=== PATIENT | female | born 1930 | race Caucasian/White ===

== ENCOUNTER 2016-10-07 21:35 | Emergency (ER) | payer MEDICARE, OTHER ==
[2016-10-07 22:19] VITALS: RESP 16; TEMP 98.3
[2016-10-07 22:22] VITALS: BP 93/60; PULSE 81; O2SAT 93
== END 2016-10-07 22:52 | disposition home or self-care (01) | DRG 605 ==
LOC: ED 21:35
DX: S40.021A Contusion of right upper arm, initial encounter (principal); S00.531A Contusion of lip, initial encounter; W01.0XXA Fall on same level from slipping, tripping and stumbling without subsequent striking against object, initial encounter
CPT/HCPCS: 73060; 99282; 99283

== ENCOUNTER 2018-01-26 14:03 | Inpatient (IN) | payer MEDICARE, OTHER ==
[2018-01-26] MEDS ORDERED: SODIUM CHLORIDE 0.9% FLUSH 10 ML SOL IV SCH (14:30)
[2018-01-26] MEDS ORDERED: DILTIAZEM 5 MG/ML SOL IV ONE (14:35)
[2018-01-26] MEDS ORDERED: DILTIAZEM 5 MG/ML 125 MG in SODIUM CHLORIDE 0.9% 100 ML 100 ML IV SCH (14:45)
[2018-01-26 15:00] LABS: BASOPHILS % (AUTO) 1 % (0-3); EOSINOPHILS % (AUTO) 0 % (0-9); HEMATOCRIT 47 % (35-47); HEMOGLOBIN 14.9 gm/dl (12.0-15.5); LYMPHOCYTES % (AUTO) 9.61 % (10-50); MEAN CORPUSCULAR HEMOGLOBIN 29.8 pg (27.0-32.0); MEAN CORPUSCULAR HGB CONC 31.9 gm/dl (32.0-36.0); MEAN CORPUSCULAR VOLUME 93 fL (81-99); MONOCYTES % (AUTO) 5.1 % (0-12); NEUTROPHILS % (AUTO) 84.7 % (37-80)
[2018-01-26 15:11] LABS: INR 4.49 (0.86-1.12)
[2018-01-26 15:21] LABS: THYROID STIMULATING HORMONE 0.262 uIU/ml (0.358-3.740); TROP I 0.715 ng/ml (0.000-0.056)
[2018-01-26 15:53] LABS: ABG PH 7.24 (7.35-7.45)
[2018-01-26 16:02] VITALS: TEMP 98
[2018-01-26 16:30] LABS: ALBUMIN 3.2 gm/dl (3.4-5.0); BILIRUBIN,TOTAL 2.4 mg/dl (0.2-1.0); CALCIUM 9.1 mg/dl (8.5-10.1); CARBON DIOXIDE 19.2 mEq/L (21-32); CREATININE 1.6 mg/dl (0.60-1.00); POTASSIUM 4.3 mMol/L (3.5-5.1); TOTAL PROTEIN 7.7 gm/dl (6.4-8.2)
[2018-01-26] MEDS ORDERED: CEFTRIAXONE 1 GM PDS 2 GM in SODIUM CHLORIDE 0.9% 100 ML 100 ML IV ONE (16:39)
[2018-01-26] MEDS ORDERED: SODIUM CHLORIDE 0.9% 500 ML 500 ML IV ONE (16:40)
[2018-01-26] MEDS ORDERED: ALBUTEROL/IPRATROPIUM 1 VIAL SOL INH ONE (16:40)
[2018-01-26] MEDS ORDERED: AZITHROMYCIN 500 MG PDS 500 MG in SODIUM CHLORIDE 0.9% 250 ML 250 ML IV ONE (16:40)
[2018-01-26] MEDS ORDERED: AZITHROMYCIN 500 MG PDS IV ONE (16:43)
[2018-01-26] MEDS ORDERED: CEFTRIAXONE 1 GM PDS ONE (16:43)
[2018-01-26] MEDS ORDERED: SODIUM CHLORIDE 0.9% 1000ML 1,000 ML IV ONE ×2 (17:15→17:23)
[2018-01-26] MEDS ORDERED: PIPERACILLIN/TAZOBACT 3.375 GM 3 GM in SODIUM CHLORIDE 0.9% 100 ML 100 ML IV ONE (17:24)
[2018-01-26] MEDS ORDERED: NOREPINEPHRINE BITARTRATE 4 MG/4 ML SOL IV SCH (17:30)
[2018-01-26] MEDS ORDERED: PIPERACILLIN/TAZOBACT 3.375 GM PDS IV ONE (17:36)
[2018-01-26 18:09] LABS: APPEARANCE,URINE Slightly Cloudy; BILIRUBIN,URINE NEGATIVE (NEGATIVE); COLOR,URINE Yellow; GLUCOSE, URINE (UA) NEGATIVE (NEGATIVE); KETONES,URINE NEGATIVE (NEGATIVE); LEUKOCYTE ESTERASE ,URINE NEGATIVE (NEGATIVE); NITRATE,URINE NEGATIVE (NEGATIVE); OCCULT BLOOD,URINE 2+ (NEG-TRACE); PH,URINE 5.5; UROBILINOGEN,URINE 0.2 (0.2-1.0 EU)
[2018-01-26 18:32] LABS: BACTERIA 1+ (< 1+); CRYSTALS 3+ AMORPH URATES (0-3 AVE/HPF); RBC,URINE 0-2 (0-3AV/HPF); WBC,URINE 0-2 (0-5AV/HPF)
[2018-01-26 20:02] VITALS: BP 98/50; PULSE 109; RESP 24; O2SAT 91
== END 2018-01-26 17:55 | disposition short-term general hospital (02) | DRG 308 ==
LOC: ACUTE CARE 14:12
PROVIDERS: ADMIT Family Medicine; ATTEND Family Medicine
DX: I48.91 Unspecified atrial fibrillation (principal); J18.9 Pneumonia, unspecified organism; R11.2 Nausea with vomiting, unspecified; R09.02 Hypoxemia; R06.00 Dyspnea, unspecified; I95.9 Hypotension, unspecified; Z79.01 Long term (current) use of anticoagulants; R06.02 Shortness of breath; R05 Cough
CPT/HCPCS: 36415; 36600; 71045; 80053; 81001; 82803; 83880; 84443; 84484; 85025; 85610; 87040; 93005; 93012; 94150; 94640; 94660; 99232; J0456; J0696; J2543; J3490